=== PATIENT | male | born 1980 | race Caucasian/White ===

== ENCOUNTER → 2021-08-27 | Day surgery (SDC) | payer OTHER ==
[~2021-08-27] VITALS: Ht 172.7 cm; Wt 73.0 kg
[~2021-08-27] MED LIST: NOHOMEMEDICATIONS
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
[2021-08-27 08:19] VITALS: BP 117/73
[2021-08-27 11:22] VITALS: BP 117/73
== END | disposition home or self-care (01) ==
LOC: OR 08-26 17:08
PROVIDERS: ATTEND Orthopaedic Surgery Sports Medicine
DX: S83.511A Sprain of anterior cruciate ligament of right knee, initial encounter (principal); M23.51 Chronic instability of knee, right knee; F17.210 Nicotine dependence, cigarettes, uncomplicated; Z98.890 Other specified postprocedural states; Z20.822 Contact with and (suspected) exposure to COVID-19; Z79.899 Other long term (current) drug therapy; X58.XXXA Exposure to other specified factors, initial encounter; Y93.89 Activity, other specified; Y92.89 Other specified places as the place of occurrence of the external cause; Y99.8 Other external cause status
CPT/HCPCS: 50010; 50101; 50386; 50405; 51320; 52001; 52282; 52313; 53337; 56524; 56527; 57103; 57179; 58297; 58352; 58485; 58589; 58682; 58771; 58877; 58916; 58917; 58919; 59020; 62110; 62900; 64039; 70005